=== PATIENT | female | born 1980 | race Caucasian/White ===

== ENCOUNTER → 2022-10-29 10:01 | Outpatient (BNVA) | payer OTHER, SELFPAY | PROVIDERS: PCP Student in an Organized Health Care Education/Training Program; Visit Provider Physician Assistant Surgical ==

== ENCOUNTER 2022-12-03 08:21 | Outpatient (AMB) | payer OTHER, SELFPAY ==
--- NOTE | 2022-12-03 11:08 | MHC.OFFVISWM ---
Intake VS Expanded 12/03/22 11:29 Height 5 ft 1 in Weight 256 lb BMI 48.4 Body Fat 129 Body Fat Percentage 50.4 Free Fat Mass 127 Visceral Mass 17 Water Mass 90.8 BMR 1,830 Intake Visit Reasons: TV BINGO FLOATER SWL BMI 48.4 Allergies Penicillins Allergy (Severe, Verified 12/03/22 11:10) Anaphylaxis Medication List - Last Reconciled 12/03/22 by Dorian Matthew MD albuterol sulfate 90 mcg/actuation 2 puffs inhalation Q6H PRN budesonide-formoterol 160-4.5 mcg/actuation (Symbicort) 1 puff inhalation BID diclofenac sodium 1% (Arthritis Pain (diclofenac)) 2 grams topical QID ibuprofen 400 mg PO Q8H omeprazole 20 mg PO DAILY topiramate 25 mg PO DAILY HPI TV BINGO FLOATER SWL BMI 48.4 HPI Details Start time: 11am, End time: 11.50am ?I spent 45 minutes speaking with the patient on the phone plus an additional 5 minutes reviewing and updating records for a total of 50 minutes HPI Comments History of Present Illness Details Previous weight loss efforts: diet pills and exercise Wakes up: 7am, Sleeps: 2am Breakfast: 9am (eggs, bagel) Lunch: 2-3pm (soups ,potatoes) Dinner: 6-7pm (meat and salad) Snacks: 11-12pm (cookies), 4-5pm (nuts or chips), twice at night (nuts and chips, or smoothies) Exercise: [employer] twice a week Fluids: Coffee (1 cup/day with milk and sugar), tea: 2-3 cups/day (sugar), Juice: 1-2 glasses per day, soda: none, ETOH: none PFSH Medical History (Updated 12/03/22 @ 11:20 by Dorian Matthew MD) Anemia Asthma Chronic headaches Daytime somnolence Depression GERD (gastroesophageal reflux disease) Morbid obesity Surgical History (Updated 10/29/22 @ 10:23 by Gretchen Feliciano CMA) Hx of section Hx of hernia repair Family History (Updated 10/29/22 @ 10:29 by Gretchen Feliciano CMA) Mother Arthritis Liver problem Father Diabetes Heart problem Obesity High cholesterol Hypertension Son No problems noted. Son Development disorder, child Son Obesity Son No problems noted. Son No problems noted. Daughter No problems noted. Daughter No problems noted. Daughter No problems noted. Social History (Updated 10/29/22 @ 10:24 by Gretchen Feliciano CMA) Alcohol intake: never Patient Tobacco Use Status: Never used Tobacco Assessment & Plan Assessment & Plan (1) Morbid obesity: Code(s): E66.01 - Morbid (severe) obesity due to excess calories Plan: 1.? Plan for lap sleeve gastrectomy. If diaphragmatic or ventral hernias are present at time of surgery, these will be repaired laparoscopically as well. Risks and complications were discussed in detail including possible conversion to an open procedure, anastomotic leak, bleeding requiring transfusion, small bowel obstruction, , DVT and pulmonary embolism, cardiac, or pulmonary complications, as long-term complications such as anastomotic ulcer, insufficient weight loss and vitamin deficiencies. I emphasized the importance of close follow-up, adherence to instructions and good communication. 2. Nutritional counseling. Start with 1 plant-based organic Orgain protein (buy at [employer], [employer], [employer], [employer]) shake (ONE scoop in 8oz low fat unsweetened almond milk each) at 8am-10am, one Isopure INFUSION protein shake (buy in [employer]) (HALF scoop in 8oz of water) at 11am-1pm, 2 protein bars (Zone Perfect protein bars, buy at [employer], ?[employer], [employer], or [employer]) at 2pm-4pm, and 5pm-7pm, dinner at 8pm (10 forks of protein and 10 forks of salad/vegetables) ,and one more protein bar after dinner 11pm-1am. Meal to include lean meat (beef, fish, pork, turkey, chicken), or montenegrin yogurt, or egg whites, or beans with a salad with olive oil and fruits (berries, pears, apples, kiwi). Avoid salt, breads, potatoes, rice, pasta, desserts. 3. Each shake would be drunk slowly, like coffee in a period of 2 hours. Stop the creamer and sugar in your coffee and add your coffee into the morning shake. 4. Cut each bar in 4 pieces and eat each piece in 30min ?to make each bar last 2 hours. 5. I emphasized the importance of measuring accurately the food portion and measure it when serving the food in plate 6. The meal portions include 10 full-size forks of meat and 10 full-size forks of salad. You always eat the meat portion but you can replace up to 5 forks for salad/vegetables with rice, potatoes or pasta, or a fruit ?if you like. The less you do it the better weight loss will be. 7. One full-size fork is what it can be scooped on the fork without falling aside and not what can be bit with the fork. Use regular forks like those you find in a typical restaurant. 8.? Please send me weight measurements as soon as possible and then once a week. Always include your diet and exercise plan. Alternatively come weekly at the office for weight checks and send me the measurements. 9. Start stationary bike at a resistance level of 4.0 Increase level by 1.0 every 3 min to a max level of 10.0. Stay at this level for 3 min and then return to level 4.0 and repeat same steps until 300 calories are burned. Goal is to burn 2000 calories per week on exercise, which means either 300 calories daily, or 400 calories 5 days per week, or 500 calories 4 days per week, or 650 calories 3 days per week. 10. Alternatively purchase a stationary bike, elliptical or treadmill at home that can track calories. Let me know if you do so I can give you an exercise plan. 11.?It is important of avoiding and for at least 18 months postoperatively and has been discussed at the infosession. 12. Goal is to lose at least 1.5-2lbs per week 13. Goal to lose 10% of your weight before surgery, which is about 26lbs. Ultimate weight goal: 230lbs before surgery 14. Please follow the diet plan exactly without any change. If you don't like something about the plan or you feel hungry you need to communicate with me so I can help you revise the plan. You should not change the plan yourself. (2) Asthma: Code(s): J45.909 - Unspecified asthma, uncomplicated (3) GERD (gastroesophageal reflux disease): Code(s): K21.9 - Gastro-esophageal reflux disease without esophagitis Orders: Orders Vitamin B12 and Folate Today E66.01 - Morbid (severe) obesity due to excess calories, J45.909 - Unspecified asthma, uncomplicated, K21.9 - Gastro-esophageal reflux disease without esophagitis Comprehensive Met. Panel Today E66.01 - Morbid (severe) obesity due to excess calories, J45.909 - Unspecified asthma, uncomplicated, K21.9 - Gastro-esophageal reflux disease without esophagitis C Reactive Protein Today E66.01 - Morbid (severe) obesity due to excess calories, J45.909 - Unspecified asthma, uncomplicated, K21.9 - Gastro-esophageal reflux disease without esophagitis Ferritin Today E66.01 - Morbid (severe) obesity due to excess calories, J45.909 - Unspecified asthma, uncomplicated, K21.9 - Gastro-esophageal reflux disease without esophagitis Hemoglobin A1c Today E66.01 - Morbid (severe) obesity due to excess calories, J45.909 - Unspecified asthma, uncomplicated, K21.9 - Gastro-esophageal reflux disease without esophagitis Insulin Today E66.01 - Morbid (severe) obesity due to excess calories, J45.909 - Unspecified asthma, uncomplicated, K21.9 - Gastro-esophageal reflux disease without esophagitis IRON PROFILE Today E66.01 - Morbid (severe) obesity due to excess calories, J45.909 - Unspecified asthma, uncomplicated, K21.9 - Gastro-esophageal reflux disease without esophagitis Lipid Panel Today E66.01 - Morbid (severe) obesity due to excess calories, J45.909 - Unspecified asthma, uncomplicated, K21.9 - Gastro-esophageal reflux disease without esophagitis PTHI Today E66.01 - Morbid (severe) obesity due to excess calories, J45.909 - Unspecified asthma, uncomplicated, K21.9 - Gastro-esophageal reflux disease without esophagitis TSH reflex Free T4 Today E66.01 - Morbid (severe) obesity due to excess calories, J45.909 - Unspecified asthma, uncomplicated, K21.9 - Gastro-esophageal reflux disease without esophagitis Vitamin A Today E66.01 - Morbid (severe) obesity due to excess calories, J45.909 - Unspecified asthma, uncomplicated, K21.9 - Gastro-esophageal reflux disease without esophagitis Vitamin B1 Today E66.01 - Morbid (severe) obesity due to excess calories, J45.909 - Unspecified asthma, uncomplicated, K21.9 - Gastro-esophageal reflux disease without esophagitis Vitamin D 25-OH Total Today E66.01 - Morbid (severe) obesity due to excess calories, J45.909 - Unspecified asthma, uncomplicated, K21.9 - Gastro-esophageal reflux disease without esophagitis Zinc Today E66.01 - Morbid (severe) obesity due to excess calories, J45.909 - Unspecified asthma, uncomplicated, K21.9 - Gastro-esophageal reflux disease without esophagitis ECG 12 lead EKG Today E66.01 - Morbid (severe) obesity due to excess calories, J45.909 - Unspecified asthma, uncomplicated, K21.9 - Gastro-esophageal reflux disease without esophagitis FL upper GI w air Today E66.01 - Morbid (severe) obesity due to excess calories, J45.909 - Unspecified asthma, uncomplicated, K21.9 - Gastro-esophageal reflux disease without esophagitis Complete Blood Count Auto Diff Today E66.01 - Morbid (severe) obesity due to excess calories, J45.909 - Unspecified asthma, uncomplicated, K21.9 - Gastro-esophageal reflux disease without esophagitis H Pylori Breath Test Today E66.01 - Morbid (severe) obesity due to excess calories, J45.909 - Unspecified asthma, uncomplicated, K21.9 - Gastro-esophageal reflux disease without esophagitis US abdomen comp w elastography Today E66.01 - Morbid (severe) obesity due to excess calories, J45.909 - Unspecified asthma, uncomplicated, K21.9 - Gastro-esophageal reflux disease without esophagitis XR chest 2V Today E66.01 - Morbid (severe) obesity due to excess calories, J45.909 - Unspecified asthma, uncomplicated, K21.9 - Gastro-esophageal reflux disease without esophagitis Referrals Behavioral Health Referral E66.01 - Morbid (severe) obesity due to excess calories, J45.909 - Unspecified asthma, uncomplicated, K21.9 - Gastro-esophageal reflux disease without esophagitis Nutrition/Dietitian Referral E66.01 - Morbid (severe) obesity due to excess calories, J45.909 - Unspecified asthma, uncomplicated, K21.9 - Gastro-esophageal reflux disease without esophagitis Telehealth Telehealth Location of provider rendering services: practice address Location of patient: address on file Patient Identification confirmed using: Name, : Yes Telehealth method: voice only Patient verbally consented to treatment: Yes Patient verbally consented to billing insurance company: Yes Patient informed of any privacy concerns related to visit: Yes Minutes spent on Phone/Video with Pt.: 50 Coding Level of Care Code Tele New Pt Level 4 (61830) Diagnoses Morbid obesity E66.01 Asthma J45.909 GERD (gastroesophageal reflux disease) K21.9 Time Spent (min) 50
[2022-12-03 11:29] VITALS: BMI 48.4
== END 2022-12-03 11:51 | disposition home or self-care (01) ==
PROVIDERS: PCP Student in an Organized Health Care Education/Training Program; Visit Provider Surgery
DX: E66.01 Morbid (severe) obesity due to excess calories (principal); Z68.42 Body mass index [BMI] 45.0-49.9, adult
CPT/HCPCS: 99204

== ENCOUNTER → 2022-12-03 08:21 | Outpatient (BNVA) | payer OTHER, SELFPAY | PROVIDERS: PCP Student in an Organized Health Care Education/Training Program; Visit Provider Surgery ==

== ENCOUNTER 2022-12-31 08:05 | Outpatient (AMB) | payer OTHER, SELFPAY ==
--- NOTE | 2022-12-31 09:21 | MHC.OFFVISWM ---
Intake VS Expanded 12/31/22 09:34 Height 5 ft 1 in Weight 258 lb 3 oz BMI 48.8 Intake Visit Reasons: TV Follow Up SWL - 1ST Allergies Penicillins Allergy (Severe, Verified 12/03/22 11:10) Anaphylaxis HPI TV Follow Up SWL - 1ST HPI Details Start time: 9.07am, End time: 9.37am ?I spent 25 minutes speaking with the patient on the phone plus an additional 5 minutes reviewing and updating records for a total of 30 minutes HPI Comments History of Present Illness Details No weight loss. Was not able to buy the protein supplements I indicated. Was also ill. [facility] Medical History (Updated 12/03/22 @ 11:20 by Dorian Matthew MD) Chronic headaches Depression GERD (gastroesophageal reflux disease) Anemia Daytime somnolence Asthma Morbid obesity Surgical History (Updated 10/29/22 @ 10:23 by Gretchen Feliciano CMA) Hx of section Hx of hernia repair Family History (Updated 10/29/22 @ 10:29 by Gretchen Feliciano CMA) Mother Arthritis Liver problem Father Diabetes Heart problem Obesity High cholesterol Hypertension Son No problems noted. Son Development disorder, child Son Obesity Son No problems noted. Son No problems noted. Daughter No problems noted. Daughter No problems noted. Daughter No problems noted. Social History (Updated 10/29/22 @ 10:24 by Gretchen Feliciano CMA) Alcohol intake: never Patient Tobacco Use Status: Never used Tobacco Assessment & Plan Assessment & Plan (1) Morbid obesity: Code(s): E66.01 - Morbid (severe) obesity due to excess calories Plan: 1. 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 Needs to send me pictures of the protein shakes she purchased 3. Needs to buy the Celebrate protein bars from the [facility] 4. Needs to provide measurements from the body composition scale I requested (2) Asthma: Code(s): J45.909 - Unspecified asthma, uncomplicated (3) GERD (gastroesophageal reflux disease): Code(s): K21.9 - Gastro-esophageal reflux disease without esophagitis Orders: Orders CA echo transthorac w con Today I51.7 - Cardiomegaly, R94.31 - Abnormal electrocardiogram [ECG] [EKG] CA stress test Today I51.7 - Cardiomegaly, R94.31 - Abnormal electrocardiogram [ECG] [EKG] Telehealth Telehealth Location of provider rendering services: practice address Location of patient: address on file Patient Identification confirmed using: Name, : Yes Telehealth method: voice only Patient verbally consented to treatment: Yes Patient verbally consented to billing insurance company: Yes Patient informed of any privacy concerns related to visit: Yes Minutes spent on Phone/Video with Pt.: 30 Coding Level of Care Code Tele Est Pt Level 4 (22104) Diagnoses Morbid obesity E66.01 Asthma J45.909 GERD (gastroesophageal reflux disease) K21.9 Time Spent (min) 30
[2022-12-31 09:34] VITALS: BMI 48.8
== END 2022-12-31 09:38 | disposition home or self-care (01) ==
LOC: HO.HBS 08:05
PROVIDERS: PCP Student in an Organized Health Care Education/Training Program; Visit Provider Surgery
DX: E66.01 Morbid (severe) obesity due to excess calories (principal); Z68.42 Body mass index [BMI] 45.0-49.9, adult; K21.9 Gastro-esophageal reflux disease without esophagitis
CPT/HCPCS: 99214

== ENCOUNTER → 2022-12-31 08:05 | Outpatient (REF) | payer OTHER, SELFPAY ==
--- NOTE | 2022-12-31 08:27 | ECG_ITS ---
Test Reason : morbid obesity Blood Pressure : / mmHG Vent. Rate : 061 BPM Atrial Rate : 061 BPM P-R Int : 142 ms QRS Dur : 102 ms QT Int : 400 ms P-R-T Axes : 040 -09 013 degrees QTc Int : 402 ms Normal sinus rhythm Minimal voltage criteria for LVH, may be normal variant ( [place]ell product ) Inferior infarct , age undetermined Abnormal ECG No previous ECGs available Referred By: Dorian Matthew Electronically Signed By:MARGA CABRALES
[2022-12-31 08:44] LABS: MANUAL DIFF FLAG NO
[2022-12-31 09:20] LABS: Basophils Absolute Auto 0.1 X10*3/uL (0.0-0.2); Basophils Percent Auto 0.4 % (0-2); Eosinophils Absolute Auto 0.2 X10*3/uL (0.0-0.4); Eosinophils Percent Auto 1.4 % (0-4); Hematocrit 39.8 % (37.0-47.0); Hemoglobin 12.1 g/dl (12.0-16.0); Imm Gran Abs Auto 0.11 X10*3/uL (0.00-0.03); Imm Gran Pct Auto 0.8 % (0.0-0.4); Lymphocytes Absolute Auto 3.9 X10*3/uL (1.2-4.9); Lymphocytes Percent Auto 27.6 % (20-40); Mean Corpuscular HGB Conc 30.4 g/dl (31.0-35.0); Mean Corpuscular Hemoglobin 23.3 pg (27.0-33.0); Mean Corpuscular Volume 76.7 fL (80.0-98.0); Monocytes Absolute Auto 1.1 X10*3/uL (0.1-1.2); Monocytes Percent Auto 7.6 % (2-11); Neutrophils Absolute Auto 8.7 x10*3/uL (2.0-8.3); Neutrophils Percent Auto 62.2 % (45-73); Platelet Count 415 X10*3/uL (160-400); Red Blood Count 5.19 X10*6/uL (4.20-5.50); Red Cell Distribution Width 16.4 % (11.0-16.0)
[2022-12-31 09:32] LABS: Estimated Average Glucose 120 mg/dL; Hemoglobin A1c % 5.8 % (<6.0)
[2022-12-31 11:05] LABS: Alanine Aminotransferase 9 U/L (0-31); Albumin Level 3.9 g/dL (3.5-5.0); Alkaline Phosphatase 50 U/L (39-117); Anion Gap 13 (12-20); Aspartate Amino Transferase 8 U/L (5-31); Bilirubin Total 0.2 mg/dL (0.0-1.0); Blood Urea Nitrogen 14 mg/dL (9-16); C Reactive Protein 0.22 mg/dL (< or = 0.50); Calcium 8.9 mg/dL (8.4-10.2); Carbon Dioxide 22 mmol/L (22-29); Chloride 108 mmol/L (96-108); Cholesterol 223 mg/dL (<200); Estimated Glomerular Filt Rate > 60; Glucose Random 98 mg/dL (60-115); HDL Cholesterol 47 mg/dL (>40); Iron 54 mcg/dL (30-160); LDL Cholesterol Calculated 160 mg/dL (<100); Percent Iron Saturation 21 % (15-50); Potassium 3.8 mmol/L (3.3-5.1); Sodium 139 mmol/L (135-145); Total Iron Binding Capacity 259 mcg/dL (228-428); Total Protein 6.8 g/dL (6.5-8.0); Triglycerides 82 mg/dL (<150); Unsaturated Iron Binding 205 ug/dL
[2022-12-31 11:22] LABS: Ferritin 23 ng/mL (10-250); Insulin 11 uU/mL (2-29); TSH reflex Free T4 3.43 uIU/mL (0.32-4.0); Vitamin D 25-OH Total 20.5 ng/mL (>30)
[2022-12-31 11:35] LABS: Vitamin B12 417 pg/mL (200-900)
[2023-01-01 15:18] LABS: PTHI 34 pg/mL (16-77)
[2023-01-04 02:19] LABS: Zinc 77 mcg/dL (60-130)
[2023-01-04 21:28] LABS: Vitamin A 44 mcg/dL (38-98)
[2023-01-05 05:49] LABS: Vitamin B1 14 nmol/L (8-30)
== END ==
LOC: HO.CARD 08:05
PROVIDERS: PCP Student in an Organized Health Care Education/Training Program; Visit Provider Surgery
DX: E66.01 Morbid (severe) obesity due to excess calories (principal); J45.909 Unspecified asthma, uncomplicated; K21.9 Gastro-esophageal reflux disease without esophagitis
CPT/HCPCS: 36415; 80053; 80061; 82306; 82607; 82728; 82746; 83036; 83525; 83540; 83970; 84425; 84443; 84590; 84630; 85025; 86140; 93005

== ENCOUNTER 2023-01-07 10:06 | Outpatient (AMB) | payer OTHER, SELFPAY ==
--- NOTE | 2023-01-07 10:18 | MHC.WMTHER ---
Intake Intake Visit Reasons: (OV) BH Intake Allergies Penicillins Allergy (Severe, Verified 12/03/22 11:10) Anaphylaxis PFS Medical History (Updated 01/07/23 @ 14:18 by Jennifer Rodriguez) Chronic headaches Depression GERD (gastroesophageal reflux disease) Anemia Daytime somnolence Asthma Morbid obesity Surgical History (Updated 10/29/22 @ 10:23 by Gretchen Feliciano CMA) Hx of section Hx of hernia repair Family History (Updated 10/29/22 @ 10:29 by Gretchen Feliciano CMA) Mother Arthritis Liver problem Father Diabetes Heart problem Obesity High cholesterol Hypertension Son No problems noted. Son Development disorder, child Son Obesity Son No problems noted. Son No problems noted. Daughter No problems noted. Daughter No problems noted. Daughter No problems noted. Social History (Updated 10/29/22 @ 10:24 by Gretchen Feliciano CMA) Alcohol intake: never Patient Tobacco Use Status: Never used Tobacco Behavioral Health Assessment Weight Management Therapy Therapy Notes Details Pt reported being in therapy several years ago due to depression very bad time , after divorce especially. She has was also on medication in the past. She reported that she needs to have weight loss surgery to help improve her health and quality of life. Presenting Concerns Referral Source provider Reason for referral weight loss surgery evaluation Precipitating Event obesity Living Situation Current Living Situation Own At risk of losing current housing? No Satisfied with current living situation? Yes Comments Pt has nine children. One who is disabled 9 years old. She has a two year old. Food/Weight/Diet Expectations of change weight loss and maintenance, said she is very afraid History/Relationship with food will discuss at next appointment History/Relationship with weight Pt stated that she has struggled with her weight on and off for many years. History/Relationship with dieting will discuss at next appointment Binge Eating Do you frequently eat large amounts of food in short periods of time, not feeling physically hungry? Yes Do you feel out of control when you eat a large amount of food in a short period of time? Yes Do you eat large amounts of food rapidly and typically alone? Yes Night Eating Do you wake up at least once during the night to eat? Yes If you wake up in the night, do you find that it is necessary to eat something in order to fall back asleep? Yes Do you have little or no appetite in the morning and feel very hungry in the evening, often overeating between dinner and when you go to bed? Yes Social History Family history and relationship Pt 8 years ago from her first she at 17. She has 9 children with him, one . Pt is remarried and has a two year old with her second . She also has 4 grandchildren. 2018 she also lost a set of twins while . 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 one disabled child who is 9. Trauma/Abuse History History of trauma? Yes Questionnaires PHQ-9 Over the last 2 weeks, how often have you been bothered by any of the following problems? 1. Little interest or pleasure in doing things: several days 2. Feeling down, depressed, or hopeless: more than half the days 3. Trouble falling or staying asleep, or sleeping too much: several days 4. Feeling tired or having little energy: nearly every day 5. Poor appetite or overeating: not at all 6. Feeling bad about yourself - or that you are a failure or have let yourself or your family down: several days 7. Trouble concentrating on things, such as reading the newspaper or watching television: several days 8. Moving or speaking so slowly that other people could have noticed. Or the opposite - being so fidgety or restless that you have been moving around a lot more than usual: several days 9. Thoughts that you would be better off or of hurting yourself in some way: not at all Total score: 10 Depression Screening Interpretation: Positive Source: Developed by Drs. Luis Camara, Taisha Her, Federico Coe and colleagues, with an educational sada from [employer]. Binge Eating Scale Group 1 A. I don't feel self-conscious about my wt. or body size when I'm with others. B. I feel concerned about how I look to others, but it normally does not make me fell disappointed with myself C. I do get self-conscious about my appearance and wt. which makes me feel disappointed in myself. D. I feel very self-conscious about my wt. and frequently I feel intense shame and disgust for myself. I try to avoid social contacts because of my self-consciousness. Response Group 1: D Group 2 A. I don't have any difficulty eating slowly in the proper manner. B. Although I seem to gobble down foods, I don't end up feeling stuffed because of eating to much. C. At times, I tend to eat quickly and then, I feel uncomfortably full afterwards. D. I have the habit of bolting down my food, without really chewing it. When this happens I usually feel uncomfortably stuffed because I've eaten to much. Response Group 2: D Group 3 A. I feel capable to control my eating urges when I want to. B. I feel like I have failed to control my eating more than the average person. C. I feel utterly helpless when it comes to feeling in control of my eating urges. D. Because I feel so helpless about controlling my eating I have become very desperate about trying to get control. Response Group 3: B Group 4 A. I don't have the habit of eating when I'm bored. B. I sometimes eat when I'm bored, but often I'm able to get busy and get my mind off food. C. I have a regular habit of eating when I'm bored, but occasionally, I can use some other activity to get my mind off eating. D. I have a strong habit of eating when I'm bored. Nothing seems to help me breath the habit. Response Group 4: C Group 5 A. I'm usually physically hungry when I eat something. B. Occasionally, I eat something on impulse even though I really am not hungry. C. I have the regular habit of eating foods, that I might not really enjoy, to satisfy a hungry feeling even though physically, I don't need the food. D. Although I'm not physically hungry, I get a hungry feeling in my mouth that only seems to be satisfied when I eat a food, like sandwich, that fills my mouth. Sometimes, when I eat the food to satisfy my mouth hunger, I then spit the food out so I won't gain weight. Response Group 5: C Group 6 A. I don't feel any guilt or self-hate after I overeat. B. After I overeat, occasionally I feel guilt or self-hate. C. Almost all the time I experience strong guilt or self-hate after I overeat. Response Group 6: C Group 7 A. I don't lose total control of my eating when dieting even after periods when I overeat. B. Sometimes when I eat a forbidden food on a diet, I feel like I blew it and eat even more. C. Frequently, I have the habit of saying to myself, I've blown it now, why not go all the way, when I overeat on a diet. When that happens I eat more. D. I have a regular habit of starting a strict diets for myself but I break the diets by going on an eating binge. My life seems to be either a feast or famine. Response Group 7: D Group 8 A. I rarely eat so much food that I feel uncomfortably stuffed afterwards. B. Usually about once a month, I each such a quantity of food, I end up feeling very stuffed. C. I have regular periods during the month when I eat large amounts of food, either at mealtime or at snacks. D. I eat so much food that I regularly feel quite uncomfortable after eating and sometimes a bit nauseous. Response Group 8: C Group 9 A. My level of calorie intake does not go up very high or go down very low on a regular basis. B. Sometimes after I overeat, I will try to reduce my caloric intake to almost nothing to compensate for the excess calories I've eaten. C. I have a regular habit of overeating during the night. It seems that my routine is not to be hungry in the morning but overeat in the evening. D. In my adult years, I have had week-long periods where I practically starve myself. This follows periods when I overeat. It seems I live a life of either feast or famine. Response Group 9: C Group 10 A. I usually am able to stop eating when I want to. I know when enough is enough. B. Every so often, I experience a compulsion to eat which I can't seem to control. C. Frequently, I experience strong urges to eat which I seem unable to control, but at other times I can control my eating urges. D. I feel incapable of controlling urges to eat. I have a fear of not being able to stop eating voluntarily. Response Group 10: C Group 11 A. I don't have any problem stopping eating when I feel full. B. I usually can stop eating when I feel full but occasionally overeat leaving me feeling uncomfortably stuffed. C. I have a problem stopping eating once I start and usually I feel uncomfortably stuffed after I eat a meal. D. Because I have a problem not being able to stop eating when I want, I sometimes have to induce vomiting to relieve my stuffed feeling. Response Group 11: D Group 12 A. I seem to eat just as much when I'm with others, Family social gatherings as when I'm by myself. B. Sometimes, when I'm with other persons, I don't eat as much as I want to eat because I'm self-conscious about my eating. C. Frequently, I eat only a small amount of food when others are present, because I'm very embarrassed about my eating. D. I feel so ashamed about overeating that I pick times to overeat when I know no one will see me. I feel like a closet eater. Response Group 12: C Group 13 A. I eat three meals a day with only an occasional between meal snack. B. I eat 3 meals a day, but I also normally snack between meals. C. When I am snacking heavily, I get in the habit of skipping regular meals. D. There are regular periods when I seem to be continually eating, with no planned meals. Response Group 13: D Group 14 A. I don't think much about trying to control unwanted eating urges. B. At least some of the time, I feel my thoughts are pre-occupied with trying to control my eating urges. C. I feel that frequently I spend much time thinking about how much I ate or about trying not to eat anymore. D. It seems to me that most of my waking hours are pre-occupied by thoughts about eating or not eating. I feel like I'm constantly struggling not to eat. Response Group 14: C Group 15 A. I don't think about food a great deal. B. I have strong craving for food but they last only for brief periods of time. C. I have days when I can't seem to think about anything else but food. D. Most of my days seem to be pre-occupied with thoughts about food. I feel like I live to eat. Response Group 15: C Group 16 A. I usually know whether or not I'm physically hungry. I take the right portion of food to satisfy me. B. Occasionally, I feel uncertain about knowing whether or not I'm physically hungry. A these times it's hard to know how much food I should take to satisfy me. C. Even though I might know how many calories I should eat, I don't have any idea what is a normal amount of food for me. Response Group 16: C Binge Eating Score: 36 Score less than 17 Minimal Risk Score between 18-26 Moderate Risk Score between 27-46 High Risk Assessment & Plan Assessment & Plan (1) Major depressive disorder, recurrent, moderate: Code(s): F33.1 - Major depressive disorder, recurrent, moderate (2) Morbid obesity: Code(s): E66.01 - Morbid (severe) obesity due to excess calories (3) Binge eating disorder: Code(s): F50.81 - Binge eating disorder Plan Patient reported struggling to get her eating habits under control. She has some underlining emotional difficulties due to to her health and previous trauma. She is not ready at this time for surgery and will be seen again. Coding Level of Care Code Psy Diag Eval (15402) Diagnoses Major depressive disorder, recurrent, moderate F33.1 Morbid obesity E66.01 Binge eating disorder F50.81 Time Spent (min) 45
== END 2023-01-07 11:06 | disposition home or self-care (01) ==
PROVIDERS: PCP Student in an Organized Health Care Education/Training Program; Visit Provider Counselor Mental Health
DX: F33.1 Major depressive disorder, recurrent, moderate (principal); E66.01 Morbid (severe) obesity due to excess calories; F50.81 Binge eating disorder
CPT/HCPCS: 90791

== ENCOUNTER → 2023-01-07 10:06 | Outpatient (BNVA) | payer OTHER, SELFPAY | PROVIDERS: PCP Student in an Organized Health Care Education/Training Program; Visit Provider Counselor Mental Health ==

== ENCOUNTER 2023-01-09 09:14 | Outpatient (REF) | payer OTHER, SELFPAY | END 2023-01-09 09:15 | disposition home or self-care (01) | LOC: HO.US 09:14 | PROVIDERS: PCP Student in an Organized Health Care Education/Training Program; Visit Provider Surgery | DX: E66.01 Morbid (severe) obesity due to excess calories (principal); J45.909 Unspecified asthma, uncomplicated; K21.9 Gastro-esophageal reflux disease without esophagitis; R40.0 Somnolence | CPT/HCPCS: 76705; 76981; 95806 ==

== ENCOUNTER → 2023-01-09 10:41 | Outpatient (BNV) | payer OTHER, SELFPAY | PROVIDERS: PCP Student in an Organized Health Care Education/Training Program; Visit Provider Internal Medicine | DX: G47.33 Obstructive sleep apnea (adult) (pediatric) (principal); E66.9 Obesity, unspecified | CPT/HCPCS: 95806 ==

== ENCOUNTER 2023-02-11 09:03 | Outpatient (REF) | payer OTHER, SELFPAY ==
[2023-02-11 10:27] LABS: UPreg QC Valid YES; Urine Pregnancy NEGATIVE (NEGATIVE)
== END 2023-02-11 09:04 | disposition home or self-care (01) ==
LOC: HO.XRAY 09:03
PROVIDERS: Physician Assistant Surgical; PCP Student in an Organized Health Care Education/Training Program; Visit Provider Surgery
DX: Z32.02 Encounter for pregnancy test, result negative (principal)
CPT/HCPCS: 81025

== ENCOUNTER 2023-03-20 14:03 | Outpatient (AMB) | payer OTHER, SELFPAY ==
--- NOTE | 2023-03-20 13:08 | A.OFFVIS_ITS ---
Intake VS Expanded 03/20/23 14:08 03/20/23 14:12 BP 141/71 H Blood Pressure Location Lt brachial Blood Pressure Position Sitting Pulse 95 Pulse Source Pulse Oximeter Temp 96.9 F Temperature Source Temporal Artery Scan Pulse Oximetry 95 Oxygen Delivery Method Room Air Height 5 ft 1 in 5 ft 1 in Weight 260 lb 260 lb 12.8 oz BMI 49.1 49.3 Body Fat % 50.5 Body Fat Mass 131.6 Fat Free Mass 129.0 Visceral Fat Rating 17.0 Body Water % 35.4 Body Water Mass 92.2 Muscle Mass/Score 1,224 Basal Metabolic Rate/Score 1,860 Intake Visit Reasons: (OV) F/U SWL Intake Note: Patient is seen in office for follow up visit, following surgical weight loss. 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 Accompanied by: Self / Same As Patient Allergies Penicillins Allergy (Severe, Verified 12/03/22 11:10) Anaphylaxis Medication List - Last Reconciled 03/20/23 by Sulma Dill PA-C albuterol sulfate 90 mcg/actuation 2 puffs inhalation Q6H PRN budesonide-formoterol 160-4.5 mcg/actuation (Symbicort) 1 puff inhalation BID cholecalciferol (vitamin D3) 125 mcg PO DAILY 90 days diclofenac sodium 1% (Arthritis Pain (diclofenac)) 2 grams topical QID ibuprofen 400 mg PO Q8H mecobalamin (vitamin B12) 1,000 mcg sublingual DAILY omeprazole 20 mg PO DAILY topiramate 25 mg PO DAILY HPI HPI Comments History of Present Illness Details Pt is here to restart SWL program. 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 TBWL is none. Patient is very upset depressed about her weight and how it effects all of her relationships and ability to work. Can't fall asleep until 2 am - wakes at 7am. works 10am - 1pm. Pt very distressed at todays visit Meal plan: has ORagin powder and Advantage bar 9am- Orgain shake with water 8 oz 12pm - another shake 3pm - dinner - 12 forks of protein and 1 2 forks vegetable, 1 serving fruit 7pm - bar 11pm - bar Exercise plan: has [employer] membership. 3d/wk - treadmill speed 2.5, incline 2 -6 - 300 calories. LS 2 miles 3d/week. Pre op work up completed as follows: SWL classes appts - cleared, Jennifer SHERI appts - missed appt December H pylori - not done yet Labs - elevated cholesterol, vit d defic CXR - not done yet ECG - ECHO and nuclear stress tests ordered in December Normal sinus rhythm Minimal voltage criteria for LVH, may be normal variant ( Alejandro product ) Inferior infarct , age undetermined Abnormal ECG No previous ECGs available ULS - liver steatosis, R 16.4, L 10.4 UGI - missed appt on 02/11 Contraception- condoms [facility] Medical History (Updated 01/10/23 @ 19:24 by Dorian Matthew MD) Chronic headaches Depression GERD (gastroesophageal reflux disease) Anemia Daytime somnolence Asthma Morbid obesity Surgical History (Updated 10/29/22 @ 10:23 by Gretchen Feliciano CMA) Hx of section Hx of hernia repair Family History (Updated 10/29/22 @ 10:29 by Gretchen Feliciano CMA) Mother Arthritis Liver problem Father Diabetes Heart problem Obesity High cholesterol Hypertension Son No problems noted. Son Development disorder, child Son Obesity Son No problems noted. Son No problems noted. Daughter No problems noted. Daughter No problems noted. Daughter No problems noted. Social History (Updated 10/29/22 @ 10:24 by Gretchen Feliciano CMA) Alcohol intake: never Patient Tobacco Use Status: Never used Tobacco Physical Exam Vital Signs: BMI result Body Mass Index 49.1 Assessment & Plan Assessment & Plan (1) Morbid obesity: Code(s): E66.01 - Morbid (severe) obesity due to excess calories Plan: REstart SWL - must address issues of depression binge eating and anxiety for her to be successful. Wants to be skinny . Meal plan- 9am - orgain shake with UAM or water 12pm - same shake 3pm - 12 forks each of protein and vegetable 7pm - bar - from our list 11 pm- if awake - bar Exercise - 3d/ gym treadmill 2.5 speed and inclien 2-6 for 300 calories 3d/ wk LS 2 mile videos, monitor calories burned Text me weekly weights and questions. Next appt with me in 3 weeks - video. Evelyn macdonald Patient is morbidly obese and is not considered stable at this time. I spent 30 minutes in total with patient reviewing/updating records, examining the patient and counseling the patient on weight management as detailed above. (2) Depression: Code(s): F32.A - Depression, unspecified Plan: Advised her to una with her PCP regarding medication for depression and insomnia (3) Binge eating disorder: Code(s): F50.81 - Binge eating disorder Plan: Appts with both Marleny and Jennifer Coding Level of Care Code Est Pt Level 4 (24967) Diagnoses Morbid obesity E66.01 Depression F32.A Binge eating disorder F50.81
[2023-03-20 14:08] VITALS: BMI 49.1
[2023-03-20 14:12] VITALS: BP 141/71; PULSE 95; TEMP 36.1; O2SAT 95; BMI 49.3
== END 2023-03-20 14:40 | disposition home or self-care (01) ==
PROVIDERS: PCP Student in an Organized Health Care Education/Training Program; Visit Provider Physician Assistant
DX: E66.01 Morbid (severe) obesity due to excess calories (principal); Z68.42 Body mass index [BMI] 45.0-49.9, adult; F50.81 Binge eating disorder; F33.9 Major depressive disorder, recurrent, unspecified
CPT/HCPCS: 99214

== ENCOUNTER → 2023-03-20 14:03 | Outpatient (BNVA) | payer OTHER, SELFPAY | PROVIDERS: PCP Student in an Organized Health Care Education/Training Program; Visit Provider Physician Assistant | DX: E66.01 Morbid (severe) obesity due to excess calories (principal); F32.A Depression, unspecified; F50.81 Binge eating disorder; Z68.42 Body mass index [BMI] 45.0-49.9, adult | CPT/HCPCS: 99212 ==